=== PATIENT | male | born 1990 | race African-American/Black ===

== ENCOUNTER 2024-10-16 15:14 | Inpatient (IN) | payer OTHER ==
[2024-10-16] MEDS ORDERED: LOPERAMIDE HCL 2 MG CAPSULE PO PRN (16:16)
[2024-10-16] MEDS ORDERED: POLYETHYLENE GLYCOL (HEALTHYLAX) 3350 17 GM PACKET PO PRN (16:16)
[2024-10-16] MEDS ORDERED: NALOXONE (NARCAN) HCL 4 MG/0.1 ML SPRAY NS PRN (16:16)
[2024-10-16] MEDS ORDERED: guaiFENesin 600 MG TABLET.ER (FP) PO PRN (16:16)
[2024-10-16] MEDS ORDERED: hydrOXYzine PAMOATE 25 MG CAPSULE (FP) PO PRN (16:16)
[2024-10-16] MEDS ORDERED: MAG HYDROX/AL HYDROX/SIMETH 30 ML UNIT-DOSE CUP PO PRN (16:16)
[2024-10-16] MEDS ORDERED: ACETAMINOPHEN 325 MG TABLET (FP) PO PRN (16:16)
[2024-10-16] MEDS ORDERED: MAGNESIUM HYDROX 2400MG/30ML ORAL SUSPENSION 30 ML CUP PO PRN (16:16)
[2024-10-16] MEDS ORDERED: IBUPROFEN 600 MG TABLET (FP) PO PRN (16:16)
[2024-10-16] MEDS ORDERED: BENZONATATE 200 MG CAPSULE PO PRN (16:16)
[2024-10-16] MEDS ORDERED: IBUPROFEN 400 MG TABLET (FP) PO PRN (16:16)
[2024-10-16] MEDS ORDERED: BENZOCAINE/MENTHOL (CHLORASEPTIC ) LOZENGE MM PRN (16:16)
[2024-10-16] MEDS: TUBERCULIN PPD 5 TU/0.1ML SYRINGE (IN PATIENT USE ONLY) ID ONE (18:44)
[2024-10-16] MEDS: MELATONIN 5 MG TABLETS PO SCH (22:26)
[2024-10-16] MEDS: THIAMINE 100 MG TABLET PO SCH (22:26)
[2024-10-17 08:35] LABS: HEMATOCRIT 37.9 % (35.4-49); HEMOGLOBIN 12.7 GM/dL (11.7-16.9); MCH 28.7 pg (25.7-33.7); MCHC 33.5 g/dl (32.0-35.9); MEAN CELL VOLUME 85.6 fl (80-96); MEAN PLT VOLUME 8.1 fl (7.5-11.1); PLATELET COUNT 262 10^3/uL (134-434); RBC 4.42 M/mm3 (4.00-5.60); RDW 13.6 % (11.9-15.9); WHITE BLOOD COUNT 4.2 K/mm3 (4.0-10.0)
[2024-10-17 08:37] LABS: POTASSIUM 3.9 mmol/L (3.5-5.1)
[2024-10-17 08:58] LABS: ALBUMIN 3.4 g/dl (3.4-5.0); BLOOD UREA NITROGEN 8.3 mg/dL (7-18); CALCIUM 8.9 mg/dL (8.5-10.1)
[2024-10-17 09:01] LABS: CREATININE 0.9 mg/dL (0.55-1.3)
[2024-10-17 09:03] LABS: TOT PROT 6.6 g/dl (6.4-8.2)
[2024-10-17 09:06] LABS: BILIRUBIN,TOTAL 0.8 mg/dL (0.2-1)
[2024-10-17] MEDS: PRENATAL VITAMINS W/ FOLIC ACID TABLET (FP) PO SCH (09:24)
[2024-10-17 17:10] LABS: HIV INTERPRETATION PRESUMPTIVE POSITIVE (NEGATIVE)
[2024-10-20 06:07] LABS: PH,URINE 7.5 (5.0-8.0); URINE APPEARANCE CLEAR; URINE BILIRUBIN NEGATIVE (NEGATIVE); URINE COLOR YELLOW; URINE GLUCOSE (UA) NEGATIVE (NEGATIVE); URINE KETONE NEGATIVE (NEGATIVE); URINE LEUK ESTERASE NEGATIVE (NEGATIVE); URINE NITRITE NEGATIVE (NEGATIVE); URINE PROTEIN NEGATIVE (NEGATIVE); URINE UROBILINOGEN 0.2 mg/dL (0.2-1.0)
[2024-10-20] MEDS: MELATONIN 5 MG TABLETS PO SCH (21:04)
[2024-10-21] MEDS: NICOTINE POLACRILEX 2 MG GUM BUC PRN (18:44)
[2024-10-22] MEDS ORDERED: ALBUTEROL SO4 HFA INHALER IH PRN (15:13)
[2024-10-22] MEDS: NICOTINE POLACRILEX 2 MG LOZENGE BC PRN (19:37)
[2024-11-05] MEDS: FLU VACCINE (FLULAVAL) PF 45 MCG/0.5 ML SYRINGE 2024-2025 IM ONE (11:32)
[2024-11-12 06:57] VITALS: BP 112/79; PULSE 87; RESP 17; TEMP 98
== END 2024-11-12 09:18 | disposition home or self-care (01) | DRG 772 ==
LOC: YASAS 15:14 → Y3N 17:45 → Y3NR 18:27 → Y3E 10-18 10:16
PROVIDERS: ADMIT Psychiatry & Neurology Pain Medicine; ATTEND Psychiatry & Neurology Pain Medicine
PROC: HZ42ZZZ Group Counseling for Substance Abuse Treatment, Cognitive-Behavioral (ICD-10-PCS; principal; 2024-10-16)
DX: F15.20 Other stimulant dependence, uncomplicated (principal); F12.10 Cannabis abuse, uncomplicated; F17.210 Nicotine dependence, cigarettes, uncomplicated; F19.282 Other psychoactive substance dependence with psychoactive substance-induced sleep disorder; Z21 Asymptomatic human immunodeficiency virus [HIV] infection status; J45.909 Unspecified asthma, uncomplicated
CPT/HCPCS: 36415; 80053; 80305; 80307; 81003; 82962; 85027; 86359; 86360; 86593; 86780; 86803; 87389; 87536; 87811; 90656; 93005; 93010; G0008